=== PATIENT | male | born 1945 | race Two or more races ===

== ENCOUNTER 2025-06-07 12:52 | Outpatient (REF) | payer OTHER, SELFPAY ==
--- OUTSIDE RECORDS SUMMARY | 2025-06-07 13:31 | XMS_ITS | Clinical Summary ---
Author Organization [facility] Address [address] [phone] Phone Care Team Providers Care Pick Pulling Machine Tender Name Role Phone Mali Hernandezhma ALMAS Primary Care Provider [phone] Allergies Active Allergy Reactions Criticality Noted Date Comments Lisinopril Other (see comments) 05/24/2013 Cough caused by use of lisinopril Medications omega-3 (FISH OIL) 1000 MG capsule Take 1 capsule by mouth in the morning and 1 capsule in the evening and 1 capsule before bedtime. Active Tiotropium Holland Monohydrate (Spiriva Respimat) 1.25 MCG/ACT aerosol solution as directed Active albuterol (2.5 MG/3ML) 0.083% nebulizer solution INHALE THE CONTENTS OF 1 VIAL VIA NEBULIZER EVERY 4 HOURS NEEDED FOR WHEEZING 1 Active fenofibrate micronized (LOFIBRA) 134 MG capsule Take 1 capsule by mouth 1 (one) time each day Active Trelegy Ellipta 100-62.5-25 MCG/INH aerosol powder 1 Active NovoLOG 100 UNIT/ML injection 2 Active metoprolol succinate XL (TOPROL-XL) 200 MG 24 hr tablet 1 Active umeclidinium-vi lanterol (Anoro Ellipta) 62.5-25 MCG/INH aerosol powder Inhale 1 puff 1 Active triamcinolone (KENALOG) 0.5 % cream Apply topically 0 Active aspirin (ST HEAVEN) 81 MG EC tablet Take 1 tablet by mouth 1 (one) time each day 1 Active atorvastatin (LIPITOR) 20 MG tablet Take 20 mg by mouth 1 (one) time each day in the evening 1 Active cholecalciferol (VITAMIN D-3) 25 MCG (1000 UT) tablet Take 1 tablet by mouth 1 (one) time each day 1 Active omeprazole (PriLOSEC) [address] capsule Take 20 mg by mouth 1 Active Jardiance 10 MG tablet TOME LEÓN TABLETA TODOS LOS CHILDERS 30 tablet 5 3 Active finasteride (PROSCAR) 5 MG tablet Take 1 tablet by mouth 1 (one) time each day Active olmesartan (BENICAR) 40 MG tablet Take 40 mg by mouth every morning 4 Active tamsulosin (FLOMAX) 0.4 MG 24 hr capsule 0.4 mg 4 Active montelukast (SINGULAIR) 10 MG tabletIndicatio ns:Asthma Take 10 mg by mouth every night Active testosterone cypionate (DEPO-TESTOTERO NE) 200 MG/ML injection Inject 0.7 mL into the shoulder, thigh, or buttocks 1 (one) time per week Active insulin glargine (LANTUS) 100 UNIT/ML injectionIndica tions:Type 2 Diabetes Mellitus Inject 60 Units under the skin every night Active chlorthalidone 25 MG tablet Take 0.5 tablets (12.5 mg total) by mouth 1 (one) time each day 45 tablet 3 5 11/30/19 26 Active Ozempic, 1 MG/DOSE, 4 MG/3ML solution pen-injector Inject 1 mg under the skin per week 5 Active Trulicity 1.5 MG/0.5ML solution auto-injector INJECT 1.5 MG INTO THE SKIN ONCE A WEEK EVERY FRIDAY STOP 0.75 MG 05/30/20 25 Discontinu ed(Med List Maintenanc e) Active Problems Problem Noted Date Diagnosed Date Migraine without aura, not refractory 11/19/2022 Bilateral lower limb edema 05/14/2022 Bilateral chronic conjunctivitis of eyes 022 Cataract 02/26/2022 Chronic kidney disease 11/27/2021 Hepatitis A immune 11/27/2021 Overview (11/27/2021): per serology Renal disorder due to type 2 diabetes mellitus 0 11/27/2021 Acquired complex renal cyst 11/27/2021 Proteinuria, not otherwise specified 11/27/2021 Essential hypernatremia 11/27/2021 Stage 3b chronic kidney disease 11/27/2021 Type 2 diabetes mellitus with diabetic nephropat hy 11/27/2021 Benign prostatic hyperplasia with lower urinary tract symptom 11/27/2021 Olecranon bursitis of right elbow 06/05/2020 Overview (11/27/2021): 03/26/19 [facility] Eval. Recommends Voltaren gel, consider steroid injection F/u 6 weeks. Erectile dysfunction 02/07/2018 Decreased libido 02/07/2018 Peyronie's disease 02/07/2018 Gastroesophageal reflux disease 09/09/2017 Subclinical hypothyroidism 05/24/2016 Male hypogonadism 10/12/2015 Overview (11/27/2021): Follows with [facility]. Rec's weekly testosterone injections Sees Urology Dr Johan Leal . Testosteron injection Received 11/11/17 F/u [facility], Dr Leal. Advised labs WNL. Recommended Verpamil injection (Erecaid), bring to office for injection Insulin pump present 09/05/2015 Overview (11/27/2021): Pump Start 08/25/2015 Asthma 07/19/2014 Diarrhea 07/19/2014 Diabetes mellitus 07/19/2014 Glaucoma 07/19/2014 Renal insufficiency 07/19/2014 Cyst of kidney 07/19/2014 Plantar fasciitis 07/19/2014 Hypertension 07/19/2014 Irritable bowel syndrome 07/19/2014 Hypertriglyceridemia 07/19/2014 History of colonoscopy 06/17/2013 Overview (11/27/2021): Done 2005 Dyslipidemia 06/17/2013 Uncomplicated moderate persistent asthma 013 Non-alcoholic fatty liver 06/18/2010 Benign prostatic hyperplasia 08/23/2009 Diabetes mellitus without me ntion of complication, type II or unspecified type, not stated as uncontrolled 04/24/2006 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 [address] [phone] Wendy Yoo ARNP Stage 3b chronic kidney disease (HCC) (Primary Dx); Hypertension; Proteinuria, not otherwise specified; Benign prostatic hyperplasia 05/03/2025 Orders Only [facility]. [address] [phone] Wendy Yoo ARNP Stage 3b chronic kidney disease (HCC); Hypertension; Proteinuria, not otherwise specified from Last 3 Months Immunizations Immunization Administration Dates Next Due H1N1 Inj 09/19/2009 Influenza Split High Dose Pr eservative Free IM 07/31/2018 Influenza TIV (IM) 08/02/2016, 5,10/19/2014,08/26 Influenza Whole 09/19/2009,09/26/2008 Influenza, Quadrivalent, Pre servative Free 07/16/2017 Influenza, Unspecified 07/24/2022,09/05/2020,11/2006 Moderna SARS-COV-2 06/28/2022, 1,01/06/2021,12/09 Pneumococcal Conjugate 13-Valent 11/24/2015 Pneumococcal Polysaccharide 09/21/2020, 3,01/28/2007 Shingrix 11/19/2022,06/28/2022 Td, Unspecified 04/09/2007 Tdap 11/24/2015 Zoster 04/23/2010 Family History Medical History Relation Comments Diabetes Father Heart disease Mother Cancer Sibling 1 brother Diabetes Sibling 2 brother Relation Status Comments Father Unknown Mother Unknown Sibling 1 Sibling 2 Social History Tobacco Use Types Packs/Day Years Used Date Smoking Tobacco: Never Smokeless Tobacco: Never Alcohol Use Standard Drinks/Week Comments Yes 0 (1 standard drink = 0.6 oz pur e alcohol) Sex and Gender Information Value Date Recorded Sex Assigned at Not on file Legal Sex Male 4:32 PM EST Gender Identity Not on file Sexual Orientation Not on file Last Filed Vital Signs Vital Sign Reading Time Taken Comments Blood Pressure 115/60 05/30/2025 1:26 PM EDT Pulse 63 05/30/2025 1:26 PM EDT Temperature - - Respiratory Rate - - Oxygen Saturation 98% 10/26/2024 11:26 AM EST Inhaled Oxygen Concentration - - Weight 94.9 kg (209 lb 3.2 oz) 05/30/2025 1:26 P M EDT Height 188 cm (6' 2 ) 05/03/2019 12:00 PM EDT Body Mass Index 26.86 05/03/2019 12:00 PM EDT Plan of Treatment Upcoming Encounters Date Type Department Care Team (Late st Contact Info) Description 11/28/2025 2:00 PM EST Office Visit [facility] [address] [phone] Wendy Yoo ARNP [address] [phone] Health Maintenance Due Date Last Done Comments Hepatitis B Vaccine (1 of 3 - Risk 3-dose series) 2005 Diabetes: Ophthalmology Exam 01/24/2020 Diabetes: Pedal Pulse Checked 01/24/2020 Diabetes: Sensory Foot Exam 01/24/2020 Diabetes: Visual Foot Exam 01/24/2020 Diabetes: Hemoglobin A1C 05/19/202502/17/2 025, 01/17/2025, 10/15/2024, Additional history exists Influenza Vaccine (#1) 2025 2, 09/05/2020, 07/31/2018, Additional history exists Colorectal Cancer Screening: Colonoscopy Discontinued 06/17/2013 Pneumococcal Vaccine: 50+ Years Completed 09/21/2020, 11/24/2015, 08/26/2013, Additional history exists Pneumococcal Vaccine: Peds ( 0 to 5 Years) and At-Risk Patients (6 to 49 Years) Discontinued 09/21/2020, 11/24/2015, 08/26/2013, Additional history exists Procedures Procedure Name Priority Date/Time Associated Diagnosis Comments EXT RESULT ENTRY Routine 05/25/2025 HEMOGLOBIN A1C Routine 11/27/2021 1:41 PM EST from Last 3 Months or Most Recently Relevant to Health Maintenance Results * (ABNORMAL) EXT RESULT ENTRY (05/25/2025) Hemoglobin 17.4 13.5 - 17.5 Hematocrit 54.4(A) 41.0 - 53.0 Platelets 221 150 - 399 10*3/UL 05/25/2025 [facility] Provider LAB BLOOD ORDERABLES Carmen l Result * (ABNORMAL) Hemoglobin A1c (11/27/2021 1:41 PM EST) Hemoglobin A1C 6.9(H) (4.0-5.6) % [facility] Comment: MONITORING: In known diabetic patients, hemoglobin A1c targets should be discussed with health care provider. DIAGNOSTIC USE: The [place] Diabetes Association (ADA) and the World Health Organization (WHO) recommend the use of HbA1c to diagnose diabetes using a threshold of 6.5%. Patients who have an HbA1c between 5.7% and 6.4% are considered at increased risk for developing diabetes in the future. CAUTION: Falsely low HbA1c results may be observed in patients with hemolytic anemia, homozygous forms of abnormal hemoglobin (e.g. SS, CC, SC), , recent blood loss or hemoglobin F greater than 7%. Fructosamine may be used as an alternate test in these cases. REFERENCE: ADA: Standards of Medical Care in Diabetes 2020, The Journal of Clinical and Applied Research and Education Volume 43, Supplement 1 Testing performed or reported by [facility], a Service of [facility], [address] [place] [address] Oliverio Nunez MD, Campus Safety Officer [facility]# [id number] 11/27/2021 1:41 PM EST 11/27/2021 2:48 PM EST Ramone Abarca MD LAB BLOOD ORDERABLES Carmen l Result [facility] from Last 3 Months or Most Recently Relevant to Health Maintenance Insurance [address] [place] [id number] [facility] [address] [place] [id number] [facility] [address] [place] [id number] [address] [place] [id number] Care Teams Pick Pulling Machine Tender Relationship Specialty Start Date End Date Margarette Hernandez NP [address] [place] [id number] PCP - General Nurse Practitioner 04/23/21
--- OUTSIDE RECORDS SUMMARY | 2025-06-07 13:31 | XMS_ITS | Clinical Summary ---
Author Organization [facility] [address] [facility] Address [address] [place] [address] Phone Care Team Providers Care Seamless Tube Mill Operator Name Role Phone Edith Dodge DIGITAL PROJECT MANAGER Primary Care Provider Allergies Active Allergy Reactions Criticality Noted Date Comments Lisinopril 08/05/2023 Medications albuterol 2.5 mg /3 mL (0.083 %) nebulizer solution Take 1 Vial by nebulization every 4 hours as needed. Active albuterol HFA (PROAIR HFA ; PROVENTIL HFA ; VENTOLIN HFA) 90 mcg/actuation inhaler Inhale 2 Puffs into the lungs every 4 hours as needed. Active amLODIPine (NORVASC) 10 mg tablet Take 1 Tablet by mouth daily. Active atorvastatin (LIPITOR) 20 mg tablet Take 1 Tablet by mouth daily. Active chlorhexidine (PERIDEX) 0.12 % solution Take 15 mL by mouth 2 times daily. Active chlorthalidone (HYGROTON) 25 mg tablet Take 1 Tablet by mouth daily. Active cholecalciferol (VITAMIN D-3) 25 mcg (1,000 unit) tablet Take by mouth. Ac tive clotrimazole (LOTRIMIN) 1 % cream Apply topically 2 times daily. Active clotrimazole-be tamethasone (LOTRISONE) 1-0.05 % cream Apply topically 2 times daily. Active finasteride (PROSCAR) 5 mg tablet Take 1 Tablet by mouth daily. Active fluticasone-ume clidinium-vilan terol (Trelegy Ellipta) 200-62.5-25 mcg inhaler Inhale into the lungs. Active hydrALAZINE (APRESOLINE) 50 mg tablet Take 1 Tablet by mouth 2 times daily. Active ketotifen (ZADITOR) 0.025 % ophthalmic solution 1 Drop 3 times daily. Active loperamide (IMODIUM) 2 mg capsule Take 1 Capsule by mouth 4 times daily as needed. Active metoprolol succinate (Kapspargo Sprinkle) 200 mg capsule,sprinkl e,ER 24hr Take by mouth. Activ e montelukast (SINGULAIR) 10 mg tablet Take 1 Tablet by mouth at bedtime. Active nitroglycerin (NITRODUR) 0.4 mg/hr Place 1 Patch onto the skin daily. Apply for no more than 12 hours in any 24 hour period. Active omega-3 acid ethyl esters (LOVAZA) 1 gram capsule Take by mouth. Activ e omeprazole (PriLOSEC) [address] capsule Take 1 Capsule by mouth daily. Active tamsulosin (FLOMAX) 0.4 mg 24 hr capsule Take 1 Capsule by mouth daily. Take 30 mins after same meal every day. Active terazosin (HYTRIN) 5 mg capsule Take 1 Capsule by mouth at bedtime. Active testosterone cypionate (DEPO-TESTOTERO NE) 200 mg/mL injection Inject into the muscle. Active topiramate (TOPAMAX) 25 mg tablet Take 1 Tablet by mouth 2 times daily. Active insulin aspart (NovoLOG) 100 unit/mL injection Inject 6-30 Units as directed 3 times daily. Use three times a day before meals:<70: 0 units, 71-100: 5 units, 101-150: 8 units, 151-200: 12 units, 201-250: 15units, 251-300: 18 units, 301-350: 21 units, 351-400: 24 units, >400: 27 units. 4 Active olmesartan (BENICAR) 40 mg tablet Take 1 tablet (40 mg total) by mouth 1 (one) time each day in the morning. 4 Active Jardiance 25 mg tablet TAKE 1 TABLET BY MOUTH EVERY MORNING (TAKE WITH PLENTY OF WATER THROUGHOUT THE DAY) STOP 10 MG Active pen needle, diabetic (BD Ultra-Fine Short Pen Needle) 31 gauge x 5/16 needle Use to inject 4 times daily as directed 400 each 3 5 Active ammonium lactate (AMLACTIN) 12 % cream Apply topically if needed for dry skin. 560 g 2 5 04/21/20 26 Active insulin glargine (Lantus Solostar U-100 Insulin) 100 unit/mL (3 mL) injection penIndications: Type 2 diabetes mellitus with other specified complication, with long-term current use of insulin ([facility] V24, [facility] V28) Inject 45 units at bedtime 15 mL 5 5 Active semaglutide (OZEMPIC) 0.25 mg or 0.5 mg (2 mg/3 mL) injection penIndications: Type 2 diabetes mellitus with other specified complication, with long-term current use of insulin ([facility] V24, [facility] V28) Use 0.5mg once weekly 3 mL 3 5 Active Active Problems Problem Noted Date Diagnosed Date Diabetes mellitus ([facility] V24, [facility] V28) Encounters Date Type Department Care Team Description 05/20/2025 12:00 PM EDT - 05/20/2025 11:59 PM EDT Hospital Encounter [facility] Xray [address] [place] [id number] Pain in right hip Discharge Disposition: Home or Self Care 05/04/2025 2:15 PM EDT Office Visit Endocrinology [address] [address] Sonya Mckeon PA Type 2 diabetes mellitus with other specified complication, with long-term current use of insulin ([facility] V24, [facility] V28) (Primary Dx) 04/21/2025 1:30 PM EDT Office Visit Orthopedic Surgery - [place] [address] [facility] [address] [place] [id number] Antonino Lai, DPRosario Type 2 diabetes mellitus with stage 3b chronic kidney disease, with long-term current use of insulin ([facility] V24, [facility] V28) (Primary Dx); Hammertoes of both feet; Metatarsalgia of left foot; Arthritis of both feet; Onychomycosis from Last 3 Months Immunizations Name Administration Dates Next Due Moderna SARS-CoV-2 COVID-19, mRNA, LNP-S, preservative free 06/28/2022,09/12/2021,01/06/2021,2020 Social History Tobacco Use Types Packs/Day Years Used Date Smoking Tobacco: Former Smokeless Tobacco: Never Tobacco Cessation:Counseling Given: Not Answered Sex and Gender Information Value Date Recorded Sex Assigned at Not on file Legal Sex Male 4:19 AM EST Gender Identity Not on file Sexual Orientation Not on file Obstetrics History Last Filed Vital Signs Vital Sign Reading Time Taken Comments Blood Pressure 132/62 05/04/2025 2:23 PM EDT C Pulse 69 05/04/2025 2:23 PM EDT Temperature 36.4 C (97.5 F) 05/04/2025 2:23 PM EDT Respiratory Rate - - Oxygen Saturation 94% 01/17/2025 1:04 PM EDT Inhaled Oxygen Concentration - - Weight 96.4 kg (212 lb 9.6 oz) 05/04/2025 2:23 P M EDT Height 188 cm (6' 2 ) 05/04/2025 2:23 PM EDT Body Mass Index 27.3 05/04/2025 2:23 PM EDT Plan of Treatment Upcoming Encounters Date Type Department Care Team (Late st Contact Info) Description 10/24/2025 4:40 PM EST Office Visit Endocrinology - [place] [address] [place] [address] Nani Garza PA [address] [place] [address] Health Maintenance Due Date Last Done Comments Diabetes: Annual Foot Exam 1955 Hepatitis A Vaccines (1 of 2 - Risk 2-dose series) 1964 Hepatitis B Vaccines (1 of 3 - Risk 3-dose series) 2005 RSV Immunization Adult Patients (1 - 1-dose 75+ series) 2020 Falls Risk Assessment 10/06/2022 Medicare Annual Wellness Visit 10/06/2022 Social Influencers of Health Screening 10/06/2022 COVID-19 Vaccine ( season) 2024 06/28/2022, 09/12/2021, 01/06/2021, Additional history exists Depression Screening 11/03/2024 Influenza Vaccine (#1) 2025 , 07/24/2022, 08/14/2021, Additional history exists Diabetes: Blood Sugar Control Test (HGBA1C) 08/19/2025 02/17/2025, 01/17/2025, 10/15/2024, Additional history exists Diabetes: Annual Retina Eye Exam 09/15/2025 09/15/2024 DTaP,Tdap,and Td Vaccines (3 - Td or Tdap) 11/24/2025 11/24/2015, 04/09/2007 Diabetes: Annual Urine Albumin-Creatinine Ratio (uACR) 02/17/2026 02/17/2025, 10/26/2024, 08/19/2024, Additional history exists Diabetes: Annual GFR (Glomerular Filtration Rate) 02/17/2026 02/17/2025, 10/15/2024, 06/04/2024 Hypertension/CHF/CAD Annual BMP Blood Test 02/17/2026 02/17/2025, 10/15/2024, 06/04/2024 Cholesterol Screening (Lipid Panel) 02/17/2030 02/17/2025, 02/17/2025, 06/04/2024, Additional history exists Pneumococcal Vaccine: 50+ Years Completed 09/21/2020, 11/24/2015, 08/26/2013, Additional history exists Hepatitis C Screening Completed 01/15/2021, 021 Zoster Vaccines Completed 11/19/2022, 06/04, 04/23/2010 HIB Vaccines Aged Out No longer eligi ble based on patient's age to complete this topic HPV Vaccines Aged Out No longer eligi ble based on patient's age to complete this topic IPV Vaccines Aged Out No longer eligi ble based on patient's age to complete this topic MMR Vaccines Aged Out No longer eligi ble based on patient's age to complete this topic Meningococcal ACWY Vaccine Aged Out N o longer eligible based on patient's age to complete this topic Meningococcal B Vaccine Aged Out No l onger eligible based on patient's age to complete this topic RSV Immunization Patients Under 20 months Aged Out No longer eligible based on patient's age to complete this topic Varicella Vaccines Aged Out No longer eligible based on patient's age to complete this topic Procedures Procedure Name Priority Date/Time Associated Diagnosis Comments XR HIP 2-3 VIEWS RIGHT Routine 05/20/2025 12:15 PM EDT Pain in right hip POC GLUCOSE Routine 05/04/2025 2:55 PM EDT Type 2 diabetes mellitus with other specified complication, with long-term current use of insulin ([facility] V24, [facility] V28) HEMOGLOBIN A1C Routine 01/17/2025 1:54 PM EDT Type 2 diabetes mellitus with stage 3b chronic kidney disease, with long-term current use of insulin ([facility] V24, [facility] V28) BASIC METABOLIC PANEL Routine 10/15/2024 2:08 PM EST Type 2 diabetes mellitus with stage 3b chronic kidney disease, with long-term current use of insulin ([facility] V24, [facility] V28) from Last 3 Months or Most Recently Relevant to Health Maintenance Results * XR Hip 2-3 Views Right (05/20/2025 12:15 PM EDT) Anatomical Region Laterality Modality Lower Extremities, Hip Right Radiograp hic Imaging 05/21/2025 10:1 2 AM EDT Impressions 05/21/2025 10:17 AM EDT No acute fracture or subluxation. Heterogeneous density in the femoral heads right greater than left. Etiology uncertain. Previous suggestion of avascular necrosis is a possibility. -------- FINAL REPORT -------- Dictated By: Kalin Dale Dictated Date: 05/21/2025 10:12 ET Assigned Physician: Kalin Dale Reviewed and Electronically Signed By: Kalin Dale Signed Date: 05/21/2025 10:17 ET Workstation ID: [id number] Transcribed By: Self Edit Transcribed Date: 05/21/2025 10:12 ET Narrative 05/21/2025 10:17 AM EDT EXAMINATION: PELVIS RIGHT HIP CLINICAL INFORMATION: Pain COMPARISON: Frontal view of the pelvis 08/07/16 TECHNIQUE: Frontal view of the pelvis 2 views right hip FINDINGS: Pelvis: The SI joints, hips and symphysis are in normal alignment. No acute pelvic fracture. No suspicious focal lesion. No evidence of a suspicious pelvic mass or collection. There is some heterogeneous density of the left femoral head region and there may be some lucencies. There is a small soft tissue calcification adjacent to the greater trochanter. There is mild concentric left hip joint space narrowing similar to previous. Some lucency projecting in the right supra-acetabular region is unchanged. Right hip: There is mild concentric joint space narrowing. No convincing deformity of the femoral head contour. There is some subchondral sclerosis of the superolateral right acetabulum. There is some heterogeneous density in the right femoral head without high-grade collapse. No acute fracture. No suspicious focal lesion. Procedure Note Kalin Dale MD - 05/21/2025 EXAMINATION: PELVIS RIGHT HIP CLINICAL INFORMATION: Pain COMPARISON: Frontal view of the pelvis 08/07/16 TECHNIQUE: Frontal view of the pelvis 2 views right hip FINDINGS: Pelvis: The SI joints, hips and symphysis are in normal alignment. No acute pelvic fracture. No suspicious focal lesion. No evidence of asuspicious pelvic mass or collection. There is some heterogeneous density of the left femoral head region andthere may be some lucencies. There is a small soft tissue calcificationadjacent to the greater trochanter. There is mild concentric left hipjoint space narrowing similar to previous. Some lucency projecting in the right supra-acetabular region isunchanged. Right hip: There is mild concentric joint space narrowing. No convincing deformity ofthe femoral head contour. There is some subchondral sclerosis of thesuperolateral right acetabulum. There is some heterogeneous density in theright femoral head without high-grade collapse. No acute fracture. No suspicious focal lesion. IMPRESSION: No acute fracture or subluxation. Heterogeneous density in the femoral heads right greater than left. Etiology uncertain. Previous suggestion of avascular necrosis is apossibility. -------- FINAL REPORT -------- Dictated By: Kalin Dale Dictated Date: 05/21/2025 10:12 ET Assigned Physician: Kalin Dale Reviewed and Electronically Signed By: Kalin Dale Signed Date: 05/21/2025 10:17 ET Workstation ID: [id number] Transcribed By: Self Edit Transcribed Date: 05/21/2025 10:12 ET Edith Dodge DIGITAL PROJECT MANAGER IMG XR PROCEDURES Final Res ult * POC glucose manually resulted (05/04/2025 2:55 PM EDT) [facility] Glucose POC 94 mg/dL Comment:non fasting Blood Capillary blood specimen / Unknown 05/04/2025 2:55 PM EDT Sonya ZEE POINT OF CARE TEST ENTER/ED IT ORDERABLES Final Result * (ABNORMAL) Hemoglobin A1c (01/17/2025 1:54 PM EDT) [facility] Hemoglobin A1C 6.7(H) <6.5 % LAB CHEMISTRY METHOD 01/17/2025 6:55 PM EDT [facility] Mean Bld Glu Estim. 146 mg/dL LAB CHEMISTRY METHOD 01/17/2025 6:55 PM EDT [facility] Blood Venous blood specimen / Unknown Venipuncture / Unknown 01/17/2025 1:54 PM EDT 01/17/2025 1:54 PM EDT Nani ZEE LAB BLOOD ORDERABLES Final Resul t [facility] [address] [place] [address], * (ABNORMAL) Basic metabolic panel (10/15/2024 2:08 PM EST) [facility] Sodium 141 133 - 145 mmol/L LAB CHEMISTRY METHOD 10/15/2024 5:03 PM EST [facility] Potassium 4.4 3.5 - 5.5 mmol/L LAB CHEMISTRY METHOD 10/15/2024 5:03 PM [facility] Chloride 103 96 - 110 mmol/L LAB CHEMISTRY METHOD 10/15/2024 5:03 PM [facility] CO2 31 21 - 32 mmol/L LAB CHEMISTRY METHOD 10/15/2024 5:03 PM [facility] Anion Gap 7 3 - 11 LAB CHEMISTRY METHOD 10/15/2024 5:03 PM [facility] Glucose 97 70 - 100 mg/dL LAB CHEMISTRY METHOD 10/15/2024 5:03 PM [facility] BUN 14 5 - 25 mg/dL LAB CHEMISTRY METHOD 10/15/2024 5:03 PM [facility] Creatinine 1.70(H) 0.70 - 1.30 mg/dL LAB CHEMISTRY METHOD 10/15/2024 5:03 PM [facility] eGFR 41(L) >=60 mL/min/1. 73m2 LAB CHEMISTRY METHOD 10/15/2024 5:03 PM [facility] Comment:Calculation based on the Chronic Kidney Disease Epidemiology Collaboration (CKD-EPI) equation refit without adjustment for race. BUN/Creatinine Ratio 8.2 LAB CHEMISTRY METHOD 10/15/2024 5:03 PM [facility] Calcium 10.2 8.5 - 10.5 mg/dL LAB CHEMISTRY METHOD 10/15/2024 5:03 PM [facility] Blood Venous blood specimen / Unknown Venipuncture / Unknown 10/15/2024 2:08 PM EST 10/15/2024 2:08 PM EST us Nani ZEE LAB BLOOD ORDERABLES Final Resul t [facility] [address] [place] [address], [place] [phone] from Last 3 Months or Most Recently Relevant to Health Maintenance Insurance [employer] Member Subscriber Plan / Payer (Ef fective 2014-Present) Name:Oscar Harris Relation to Subscriber:Self Name:Oscar Harris Payer ID:[id number] Group ID:[id number] Type:Not on file Address: [address] [facility] [place] [address] Care Teams Seamless Tube Mill Operator Relationship Specialty Start Date End Date Edith Dodge FNP [address] [place] [address] PCP - General 07/22/24
--- OUTSIDE RECORDS SUMMARY | 2025-06-07 13:31 | XMS_ITS | Clinical Summary ---
[facility] Organization [facility] Address [address] [place] [address] Care Team Providers Care Brood Hatchery Manager Name Role Phone Crow Bahena MD Primary Care Provider [phone] Allergies Active Allergy Reactions Criticality Noted Date Comments Lisinopril 02/07/2018 Medications Medication Sig Dispensed Refills Start Date End Date Status finasteride (PROSCAR) 5 MG tablet Take 5 mg by mouth daily. 0 Active hydrochlorothiazide (HYDRODIURIL) tablet 25 mg Take 25 mg by mouth daily. 0 Active metoprolol tartrate (LOPRESSOR) 50 MG tablet Take by mouth 2 (two) times a day. 0 Active terazosin (HYTRIN) 5 MG capsule Take 5 mg by mouth every night at bedtime. 0 Active testosterone cypionate (DEPO-TESTOSTERONE CYPIONATE) injection 200 mg/mL Inject into the muscle once. 0 Active amLODIPine (NORVASC) tablet 5 mg Take 5 mg by mouth daily. 0 Active insulin lispro (HumaLOG) injection 100 units/mL Inject under the skin 3 (three) times a day before meals. 0 Active losartan (COZAAR) 100 MG tablet Take 100 mg by mouth daily. 0 Active montelukast (SINGULAIR) 10 MG tablet Take 10 mg by mouth every night at bedtime. 0 Active Beclomethasone Diprop HFA (QVAR REDIHALER) 80 MCG/ACT AERB Inhale into the lungs. 0 Active simvastatin (ZOCOR) tablet 20 mg Take 20 mg by mouth every night at bedtime. 0 Active albuterol (PROVENTIL HFA;VENTOLIN HFA) 108 (90 Base) MCG/ACT inhaler Inhale 2 puffs into the lungs every 6 (six) hours as needed for wheezing. 0 Active verapamil (ISOPTIN) 2.5 MG/ML injection Inject into the vein once. 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 Decreased libido 02/07/2018 Social History Tobacco Use Types Packs/Day Years Used Date Smoking Tobacco: Former Alcohol Use Standard Drinks/Week Comments Yes 0 (1 standard drink = 0.6 oz pur e alcohol) social Sex and Gender Information Value Date Recorded Sex Assigned at Not on file Gender Identity Not on file Sexual Orientation Not on file Plan of Treatment Health Maintenance Due Date Last Done Comments Hepatitis C Screening 1945 COVID-19 Vaccine (#1) 03/30/1946 Depression Screening 1957 Preventative Health Evaluation 1963 Shingrix-Zoster Vaccine (1 of 2) 1995 Fall Risk Assessment 2010 RSV Adult > 60+ Yrs or (1 - 1-dose 75+ series) 2020 Influenza Vaccine (#1) 2025 7, 08/02/2016, 08/23/2015, Additional history exists DTap / Tdap / Td (2 - Td or Tdap) 11/24/2025 11/24/2015 Pneumococcal Vaccine Completed 11/24/2015, 08/26/20 13 Hepatitis B Vaccines Aged Out No long er eligible based on patient's age to complete this topic RSV Ped < 20 months Aged Out No longe r eligible based on patient's age to complete this topic Care Teams Brood Hatchery Manager Relationship Specialty Start Date End Date Crow Bahena MD [address] [place] [address] PCP - General Internal Medicine 02/05/18
== END 2025-06-07 12:53 | disposition home or self-care (01) ==
LOC: HO.BBR 12:52
PROVIDERS: Visit Provider Urology
DX: D75.1 Secondary polycythemia (principal)
CPT/HCPCS: 85018; 99195